=== PATIENT | female | born 1950 | race African-American/Black ===

== ENCOUNTER 2016-06-30 20:27 | Emergency (ER) | payer OTHER ==
[~2016-06-30] VITALS: Ht 162.6 cm; Wt 104.0 kg
[~2016-06-30 20:27] MED LIST: ADVAIR; CLONIDINE; DIPHENHYDRAMINE; FENTANYL; GABAPENTIN; HYDROCODONE; HYDROXYZINE; LORAZEPAM; NITROSTAT; PRILOSEC; RANITIDINE; SIMVASTATIN; SOMA; ZOLPIDEM
[2016-06-30] MEDS ORDERED: IBUPROFEN 600MG TABLET PO ONE (22:30)
[2016-06-30] MEDS ORDERED: TRAMADOL 50MG TABLET PO ONE (22:30)
[2016-06-30 23:11] LABS: BASOPHILS % 0.6 % (0.0-2.0); EOSINOPHILS % 1.8 % (0.0-5.0); HEMATOCRIT. 41.4 % (36.0-48.0); HEMOGLOBIN. 13.4 g/dL (12.0-16.0); LYMPHOCYTES % 37.2 % (20.0-50.0); MEAN CORPUSCULAR HEMOGLOBIN 28.5 pg (28.0-32.0); MEAN CORPUSCULAR HGB CONC 32.4 g/dL (31.0-37.0); MEAN CORPUSCULAR VOLUME 87.8 fL (81.0-99.0); MEAN PLATELET VOLUME 9.1 fl (7.4-10.4); NEUTROPHILS % 55.4 % (40.0-76.0); PLATELET 336 x1000/uL (130-400); RED BLOOD CELL COUNT 4.72 mill/uL (4.2-5.4); RED CELL DISTRIBUTION WIDTH 17.2 % (11.6-14.6)
[2016-06-30 23:15] LABS: CHLORIDE 107 mEq/L (98-107); INDEX HEMOLYSI 1 (1-3); INDEX ICTERIC 1 (1-4); INDEX LIPEMIC 1 (1-3)
[2016-06-30 23:17] LABS: ANION GAP 12; CALCIUM 9.9 mg/dL (8.5-10.1); CARBON DIOXIDE 28 mEq/L (21-32); UREA NITROGEN BLOOD 15 mg/dL (7-21)
[2016-06-30 23:20] LABS: eGFR > 60 mL/min (>60)
[2016-06-30] MEDS ORDERED: NAPROXEN 500MG TABLET PO ONE (23:45)
[2016-07-01 00:16] VITALS: BP 153/88
== END 2016-07-01 00:27 | disposition home or self-care (01) ==
LOC: ER 20:28
DX: R52 Pain, unspecified (principal); M25.511 Pain in right shoulder; I25.2 Old myocardial infarction; M79.7 Fibromyalgia; M06.9 Rheumatoid arthritis, unspecified; M25.512 Pain in left shoulder; J45.909 Unspecified asthma, uncomplicated; J44.9 Chronic obstructive pulmonary disease, unspecified; I50.9 Heart failure, unspecified; Z88.0 Allergy status to penicillin; Z88.5 Allergy status to narcotic agent
CPT/HCPCS: 36415; 71010; 80048; 85025; 93005; 99285; Z7610

== ENCOUNTER 2017-02-16 11:56 | Emergency (ER) | payer OTHER ==
[~2017-02-16] VITALS: Ht 165.1 cm; Wt 120.0 kg
[2017-02-16] MEDS ORDERED: ACETAMINOPHEN 325MG TABLET PO ONE (14:30)
[2017-02-16 15:30] VITALS: BP 146/85
== END 2017-02-16 15:59 | disposition home or self-care (01) ==
LOC: ER 12:12
DX: M79.652 Pain in left thigh (principal); J44.9 Chronic obstructive pulmonary disease, unspecified; I10 Essential (primary) hypertension; I50.9 Heart failure, unspecified; M79.7 Fibromyalgia; Z88.0 Allergy status to penicillin; Z88.6 Allergy status to analgesic agent
CPT/HCPCS: 93971; 99284